=== PATIENT | male | born 1940 | race Caucasian/White ===

== ENCOUNTER 2021-03-08 10:15 | Emergency (ER) | payer MEDICARE, OTHER ==
[2021-03-08] MEDS ORDERED: Dextrose 50% Abboject 50 ML SYRINGE ONE (10:24)
[2021-03-08] MEDS ORDERED: Dextrose 5 % And 0.9 % NaCl 1,000 ML ONE ×2 (10:36→17:02)
[2021-03-08 11:19] LABS: Base Excess-Venous -2.1 mmol/L (-2.0 to 3.0); Bicarbonate (HCO3v) 25.6 mmol/L (22.0-28.0); CO2 Tension (PvCO2) 57.1 mmHg (42.0-51.0); Calcium, Ionized 1.15 mmol/L (1.15-1.33); Chloride 109 mmol/L (98-107); Hemoglobin - Calc 10.9 g/dL (14.0-18.0); Potassium 4.1 mmol/L (3.5-5.1); Sodium 145 mmol/L (138-145); T. Carbon Dioxide 27.4 mmol/L (22.0-28.0); vO2 Saturation-calc 61.1 % (60.0-85.0)
[2021-03-08 11:26] LABS: #Basophils 0.1 thou/uL (0.0-0.2); #Eosinphils 0.2 thou/uL (0.0-0.7); #Lymphocytes 2.8 thou/uL (1.20-3.40); #Monocytes 0.8 thou/uL (0.11-0.59); #Neutrophils 6.4 thou/uL (1.40-6.50); %Basophils 0.5 % (0.0-1.0); %Eosinophils 1.6 % (0.0-10.0); %Lymphocytes 27.6 % (21.0-51.0); %Monocytes 7.9 % (0.0-10.0); %Neutrophils 62.4 % (42.0-75.0); Hemoglobin 10.8 g/dL (14.0-18.0); MDiff Complete? YES; Mean Corpuscular HGB CONC 29.9 g/dL (32.0-36.0); Mean Platelet Volume 10.7 fL (7.4-10.4); Platelet Count 225 thou/uL (130-400); Polychromasia SLIGHT = 2-3 cells (100X) (0-2/hpf); RBC Distribution Width 15.2 % (11.5-14.5); Red Blood Cell (RBC) Count 4.15 mill/uL (4.70-6.10); White Blood Cell (WBC) Count 10.2 thou/uL (4.8-10.8)
[2021-03-08 11:28] LABS: ALT (SGPT) 19 U/L (8-55); AST (SGOT) 19 U/L (5-34); Albumin 3.8 g/dL (3.4-4.8); Alkaline Phosphatase 58 U/L (40-110); Anion Gap 14 mmol/L (10-20); BUN (Urea Nitrogen) 17 mg/dL (8.4-25.7); Bilirubin, Total 0.6 mg/dL (0.2-1.2); CK (CPK) 110 U/L (30-200); Calc. Creatinine Clearance 0 mL/min (70-130); Calcium 8.1 mg/dL (7.8-10.44); Carbon Dioxide 23 mmol/L (23-31); Chloride 111 mmol/L (98-107); Globulin 2.7 g/dL (2.4-3.5); Glucose 92 mg/dL (83-110); Lipase 16 U/L (8-78); Potassium 4.2 mmol/L (3.5-5.1); Protein, Total 6.5 g/dL (5.8-8.1); Sodium 144 mmol/L (136-145)
[2021-03-08 13:02] LABS: Bilirubin Negative (Negative); Blood, Urine Negative (Negative); Clarity Clear (Clear); Glucose, Urine (Dipstick) 100 mg/dL (Negative); Ketone, Urine Negative (Negative); Leukocyte Negative (Negative); Nitrite Negative (Negative); Protein, Urine (Dipstick) Negative (Neg-Trace); Urobilinogen 0.2 mg/dL (Less than 2); pH, Urine 5.5 (5.0-9.0)
[2021-03-08 14:05] LABS: SARS-CoV-2 NAA Rapid Test Not Detected (NotDetected)
== END 2021-03-08 16:08 | disposition short-term general hospital (02) ==
LOC: MADERS 10:15
DX: E11.649 Type 2 diabetes mellitus with hypoglycemia without coma (principal); G93.41 Metabolic encephalopathy; R22.0 Localized swelling, mass and lump, head; Z20.822 Contact with and (suspected) exposure to COVID-19; E11.40 Type 2 diabetes mellitus with diabetic neuropathy, unspecified; Z79.4 Long term (current) use of insulin; E03.9 Hypothyroidism, unspecified; E78.5 Hyperlipidemia, unspecified; E78.00 Pure hypercholesterolemia, unspecified; I10 Essential (primary) hypertension; E66.9 Obesity, unspecified; Z79.899 Other long term (current) drug therapy; Z79.82 Long term (current) use of aspirin
CPT/HCPCS: 0240U; 70450; 71045; 80053; 81003; 82330; 82435; 82550; 82803; 82962; 83605; 83690; 84132; 84295; 84484; 85014; 85025; 87040; 87086; 93005; 36416; 51701; 96374; 36415-59; J7042

== ENCOUNTER 2021-07-14 14:13 | Inpatient (IN) | payer OTHER, MEDICARE, BC ==
[2021-07-14 17:58] VITALS: BMI 34.2
[2021-07-14] MEDS ORDERED: Ondansetron ODT 4 MG TAB PO PRN (18:49)
[2021-07-14] MEDS ORDERED: Cephalexin 500 MG CAP PO SCH (19:00)
[2021-07-14] MEDS ORDERED: Dextrose 50% Abboject 50 ML SYRINGE SLOW IVP PRN (19:22)
[2021-07-14] MEDS ORDERED: Bacitracin 1 PK TOP PRN (19:27)
[2021-07-14] MEDS: Terazosin HCl 5 MG CAP PO SCH (21:55)
[2021-07-14] MEDS: Senokot S 8.6-50 MG TAB PO SCH (21:55)
[2021-07-14] MEDS: Tamsulosin HCl 0.4 MG CAP PO SCH (21:55)
[2021-07-14] MEDS: Bacitracin 1 PK TOP SCH (21:55)
[2021-07-14] MEDS: Famotidine 20 MG TAB PO SCH (21:55)
[2021-07-14] MEDS: Cephalexin 500 MG CAP PO SCH (21:55)
[2021-07-14] MEDS: Pregabalin 75 MG CAP PO SCH (21:55)
[2021-07-14] MEDS: Lisinopril 20 MG TAB PO SCH (21:56)
[2021-07-14] MEDS: levETIRAcetam 500 MG TAB PO SCH (21:57)
[2021-07-14] MEDS: Rosuvastatin 10 MG TAB PO SCH (21:57)
[2021-07-14] MEDS: Ascorbic Acid 500 mg Chewable Tablet PO SCH (21:57)
[2021-07-14] MEDS: HumaLOG 300 UNITS/3 ML VIAL SC SCH (21:58)
[2021-07-14] MEDS: Melatonin 3 MG TAB PO SCH (21:58)
[2021-07-15] MEDS ORDERED: Acetaminophen 325 MG TAB PO SCH (00:30)
[2021-07-15] MEDS: Acetaminophen 325 MG TAB PO SCH ×4 (06:04→23:53)
[2021-07-15] MEDS: Levothyroxine Sodium 75 MCG TAB PO SCH (06:04)
[2021-07-15] MEDS: Finasteride 5 MG TAB PO SCH (09:08)
[2021-07-15] MEDS: Pregabalin 75 MG CAP PO SCH ×2 (09:08→20:44)
[2021-07-15] MEDS: metFORMIN 500 MG TAB PO SCH ×2 (09:08→17:10)
[2021-07-15] MEDS: Lisinopril 20 MG TAB PO SCH ×2 (09:09→20:46)
[2021-07-15] MEDS: Ferrous Sulfate 325 MG TAB PO SCH (09:10)
[2021-07-15] MEDS: Senokot S 8.6-50 MG TAB PO SCH ×2 (09:10→20:44)
[2021-07-15] MEDS: levETIRAcetam 500 MG TAB PO SCH ×2 (09:10→20:46)
[2021-07-15] MEDS: Carvedilol 12.5 MG TAB PO SCH ×2 (09:10→17:11)
[2021-07-15] MEDS: Ascorbic Acid 500 mg Chewable Tablet PO SCH ×2 (09:10→20:44)
[2021-07-15] MEDS: Cyanocobalamin (Vitamin B-12) 1,000 MCG TAB PO SCH (09:10)
[2021-07-15] MEDS: Amlodipine 5 MG TAB PO SCH (09:10)
[2021-07-15] MEDS: Famotidine 20 MG TAB PO SCH ×2 (09:10→20:44)
[2021-07-15] MEDS: Bacitracin 1 PK TOP SCH ×2 (09:11→20:52)
[2021-07-15] MEDS: Cephalexin 500 MG CAP PO SCH ×4 (09:11→20:46)
[2021-07-15] MEDS: HumaLOG 300 UNITS/3 ML VIAL SC SCH ×3 (09:11→20:49)
[2021-07-15] MEDS: Polyethylene Glycol 3350 17 GM Packet PO SCH (09:13)
[2021-07-15] MEDS: Rosuvastatin 10 MG TAB PO SCH (20:45)
[2021-07-15] MEDS: Melatonin 3 MG TAB PO SCH (20:46)
[2021-07-15] MEDS: Terazosin HCl 5 MG CAP PO SCH (20:46)
[2021-07-15] MEDS: Tamsulosin HCl 0.4 MG CAP PO SCH (20:47)
[2021-07-16] MEDS: Levothyroxine Sodium 75 MCG TAB PO SCH (05:50)
[2021-07-16] MEDS: Acetaminophen 325 MG TAB PO SCH ×4 (05:50→23:43)
[2021-07-16] MEDS: Ascorbic Acid 500 mg Chewable Tablet PO SCH ×2 (09:07→20:48)
[2021-07-16] MEDS: Carvedilol 12.5 MG TAB PO SCH ×2 (09:07→17:28)
[2021-07-16] MEDS: Amlodipine 5 MG TAB PO SCH (09:08)
[2021-07-16] MEDS: metFORMIN 500 MG TAB PO SCH ×2 (09:08→17:28)
[2021-07-16] MEDS: Famotidine 20 MG TAB PO SCH ×2 (09:09→20:49)
[2021-07-16] MEDS: Cyanocobalamin (Vitamin B-12) 1,000 MCG TAB PO SCH (09:09)
[2021-07-16] MEDS: Cephalexin 500 MG CAP PO SCH ×4 (09:09→20:49)
[2021-07-16] MEDS: HumaLOG 300 UNITS/3 ML VIAL SC SCH ×3 (09:10→20:51)
[2021-07-16] MEDS: levETIRAcetam 500 MG TAB PO SCH ×2 (09:10→20:57)
[2021-07-16] MEDS: Ferrous Sulfate 325 MG TAB PO SCH (09:10)
[2021-07-16] MEDS: Finasteride 5 MG TAB PO SCH (09:10)
[2021-07-16] MEDS: Pregabalin 75 MG CAP PO SCH ×2 (09:11→20:53)
[2021-07-16] MEDS: Lisinopril 20 MG TAB PO SCH ×2 (09:11→20:55)
[2021-07-16] MEDS: Polyethylene Glycol 3350 17 GM Packet PO SCH (09:11)
[2021-07-16] MEDS: Bacitracin 1 PK TOP SCH ×2 (09:11→20:49)
[2021-07-16] MEDS: Senokot S 8.6-50 MG TAB PO SCH ×2 (09:12→20:52)
[2021-07-16] MEDS: Rosuvastatin 10 MG TAB PO SCH (20:53)
[2021-07-16] MEDS: Tamsulosin HCl 0.4 MG CAP PO SCH (20:54)
[2021-07-16] MEDS: Melatonin 3 MG TAB PO SCH (20:54)
[2021-07-16] MEDS: Terazosin HCl 5 MG CAP PO SCH (20:54)
[2021-07-17] MEDS: Acetaminophen 325 MG TAB PO SCH ×3 (05:40→17:20)
[2021-07-17] MEDS: Levothyroxine Sodium 75 MCG TAB PO SCH (05:41)
[2021-07-17] MEDS: Senokot S 8.6-50 MG TAB PO SCH ×2 (09:26→20:38)
[2021-07-17] MEDS: levETIRAcetam 500 MG TAB PO SCH ×2 (09:26→20:41)
[2021-07-17] MEDS: metFORMIN 500 MG TAB PO SCH ×2 (09:26→17:19)
[2021-07-17] MEDS: Pregabalin 75 MG CAP PO SCH ×2 (09:27→20:37)
[2021-07-17] MEDS: Carvedilol 12.5 MG TAB PO SCH ×2 (09:27→17:19)
[2021-07-17] MEDS: Cyanocobalamin (Vitamin B-12) 1,000 MCG TAB PO SCH (09:28)
[2021-07-17] MEDS: Ferrous Sulfate 325 MG TAB PO SCH (09:28)
[2021-07-17] MEDS: Cephalexin 500 MG CAP PO SCH ×4 (09:28→20:36)
[2021-07-17] MEDS: Finasteride 5 MG TAB PO SCH (09:28)
[2021-07-17] MEDS: Amlodipine 5 MG TAB PO SCH (09:28)
[2021-07-17] MEDS: Famotidine 20 MG TAB PO SCH ×2 (09:28→20:42)
[2021-07-17] MEDS: Ascorbic Acid 500 mg Chewable Tablet PO SCH ×2 (09:28→20:36)
[2021-07-17] MEDS: HumaLOG 300 UNITS/3 ML VIAL SC SCH ×3 (09:29→20:45)
[2021-07-17] MEDS: Polyethylene Glycol 3350 17 GM Packet PO SCH (09:30)
[2021-07-17] MEDS: Lisinopril 20 MG TAB PO SCH ×2 (09:33→20:37)
[2021-07-17] MEDS: Bacitracin 1 PK TOP SCH ×2 (09:35→20:36)
[2021-07-17] MEDS: Terazosin HCl 5 MG CAP PO SCH (20:38)
[2021-07-17] MEDS: Rosuvastatin 10 MG TAB PO SCH (20:39)
[2021-07-17] MEDS: Tamsulosin HCl 0.4 MG CAP PO SCH (20:41)
[2021-07-17] MEDS: Melatonin 3 MG TAB PO SCH (20:42)
[2021-07-18] MEDS: Acetaminophen 325 MG TAB PO SCH ×4 (00:11→17:15)
[2021-07-18] MEDS: Levothyroxine Sodium 75 MCG TAB PO SCH (05:19)
[2021-07-18] MEDS: Finasteride 5 MG TAB PO SCH (09:19)
[2021-07-18] MEDS: Carvedilol 12.5 MG TAB PO SCH ×2 (09:19→17:15)
[2021-07-18] MEDS: levETIRAcetam 500 MG TAB PO SCH ×2 (09:19→20:45)
[2021-07-18] MEDS: Famotidine 20 MG TAB PO SCH ×2 (09:19→20:52)
[2021-07-18] MEDS: metFORMIN 500 MG TAB PO SCH ×2 (09:19→17:14)
[2021-07-18] MEDS: Amlodipine 5 MG TAB PO SCH (09:19)
[2021-07-18] MEDS: Ascorbic Acid 500 mg Chewable Tablet PO SCH ×2 (09:19→20:53)
[2021-07-18] MEDS: Lisinopril 20 MG TAB PO SCH ×2 (09:20→20:52)
[2021-07-18] MEDS: Pregabalin 75 MG CAP PO SCH ×2 (09:20→20:50)
[2021-07-18] MEDS: Cyanocobalamin (Vitamin B-12) 1,000 MCG TAB PO SCH (09:20)
[2021-07-18] MEDS: Cephalexin 500 MG CAP PO SCH ×4 (09:20→20:45)
[2021-07-18] MEDS: Polyethylene Glycol 3350 17 GM Packet PO SCH (09:21)
[2021-07-18] MEDS: Ferrous Sulfate 325 MG TAB PO SCH (09:21)
[2021-07-18] MEDS: HumaLOG 300 UNITS/3 ML VIAL SC SCH ×3 (09:22→21:07)
[2021-07-18] MEDS: Bacitracin 1 PK TOP SCH ×2 (09:22→20:50)
[2021-07-18] MEDS: Senokot S 8.6-50 MG TAB PO SCH ×2 (09:28→20:50)
[2021-07-18 15:26] LABS: SARS-CoV-2 PCR by NAA Not Detected (NotDetected)
[2021-07-18] MEDS: Terazosin HCl 5 MG CAP PO SCH (20:45)
[2021-07-18] MEDS: Rosuvastatin 10 MG TAB PO SCH (20:45)
[2021-07-18] MEDS: Tamsulosin HCl 0.4 MG CAP PO SCH (20:45)
[2021-07-18] MEDS: Melatonin 3 MG TAB PO SCH (20:53)
[2021-07-19] MEDS: Acetaminophen 325 MG TAB PO SCH ×5 (01:27→23:51)
[2021-07-19] MEDS: Levothyroxine Sodium 75 MCG TAB PO SCH (06:23)
[2021-07-19] MEDS: Senokot S 8.6-50 MG TAB PO SCH ×2 (07:48→21:11)
[2021-07-19] MEDS: Ferrous Sulfate 325 MG TAB PO SCH (07:48)
[2021-07-19] MEDS: levETIRAcetam 500 MG TAB PO SCH ×2 (07:49→21:02)
[2021-07-19] MEDS: Bacitracin 1 PK TOP SCH ×2 (07:49→21:02)
[2021-07-19] MEDS: Famotidine 20 MG TAB PO SCH ×2 (07:49→21:02)
[2021-07-19] MEDS: Polyethylene Glycol 3350 17 GM Packet PO SCH (07:49)
[2021-07-19] MEDS: Ascorbic Acid 500 mg Chewable Tablet PO SCH ×2 (07:49→21:02)
[2021-07-19] MEDS: metFORMIN 500 MG TAB PO SCH ×2 (07:49→17:18)
[2021-07-19] MEDS: Finasteride 5 MG TAB PO SCH (07:50)
[2021-07-19] MEDS: Cyanocobalamin (Vitamin B-12) 1,000 MCG TAB PO SCH (07:50)
[2021-07-19] MEDS: Amlodipine 5 MG TAB PO SCH (07:50)
[2021-07-19] MEDS: Pregabalin 75 MG CAP PO SCH ×2 (07:50→21:05)
[2021-07-19] MEDS: Carvedilol 12.5 MG TAB PO SCH ×2 (07:50→17:18)
[2021-07-19] MEDS: Cephalexin 500 MG CAP PO SCH ×4 (07:50→21:04)
[2021-07-19] MEDS: Lisinopril 20 MG TAB PO SCH ×2 (07:50→21:03)
[2021-07-19] MEDS: HumaLOG 300 UNITS/3 ML VIAL SC SCH ×3 (07:51→21:16)
[2021-07-19] MEDS: Tamsulosin HCl 0.4 MG CAP PO SCH (21:02)
[2021-07-19] MEDS: Terazosin HCl 5 MG CAP PO SCH (21:02)
[2021-07-19] MEDS: Rosuvastatin 10 MG TAB PO SCH (21:02)
[2021-07-19] MEDS: Melatonin 3 MG TAB PO SCH (21:03)
[2021-07-20] MEDS: Levothyroxine Sodium 75 MCG TAB PO SCH (05:56)
[2021-07-20] MEDS: Acetaminophen 325 MG TAB PO SCH ×4 (05:56→23:28)
[2021-07-20] MEDS: levETIRAcetam 500 MG TAB PO SCH ×2 (08:27→20:53)
[2021-07-20] MEDS: Polyethylene Glycol 3350 17 GM Packet PO SCH (08:27)
[2021-07-20] MEDS: Senokot S 8.6-50 MG TAB PO SCH ×2 (08:27→20:53)
[2021-07-20] MEDS: Lisinopril 20 MG TAB PO SCH ×2 (08:27→20:54)
[2021-07-20] MEDS: metFORMIN 500 MG TAB PO SCH ×2 (08:28→17:16)
[2021-07-20] MEDS: Cyanocobalamin (Vitamin B-12) 1,000 MCG TAB PO SCH (08:28)
[2021-07-20] MEDS: Amlodipine 5 MG TAB PO SCH (08:28)
[2021-07-20] MEDS: Pregabalin 75 MG CAP PO SCH ×2 (08:29→20:56)
[2021-07-20] MEDS: Carvedilol 12.5 MG TAB PO SCH ×2 (08:29→17:21)
[2021-07-20] MEDS: Ascorbic Acid 500 mg Chewable Tablet PO SCH ×2 (08:29→20:53)
[2021-07-20] MEDS: Ferrous Sulfate 325 MG TAB PO SCH (08:29)
[2021-07-20] MEDS: Finasteride 5 MG TAB PO SCH (08:30)
[2021-07-20] MEDS: Bacitracin 1 PK TOP SCH ×2 (08:30→20:53)
[2021-07-20] MEDS: Famotidine 20 MG TAB PO SCH ×2 (08:30→20:54)
[2021-07-20] MEDS: HumaLOG 300 UNITS/3 ML VIAL SC SCH ×3 (08:31→20:58)
[2021-07-20] MEDS: Cephalexin 500 MG CAP PO SCH ×4 (08:31→20:55)
[2021-07-20] MEDS: Rosuvastatin 10 MG TAB PO SCH (20:53)
[2021-07-20] MEDS: Terazosin HCl 5 MG CAP PO SCH (20:53)
[2021-07-20] MEDS: Melatonin 3 MG TAB PO SCH (20:53)
[2021-07-20] MEDS: Tamsulosin HCl 0.4 MG CAP PO SCH (20:54)
[2021-07-21] MEDS: Acetaminophen 325 MG TAB PO SCH ×3 (06:04→17:32)
[2021-07-21] MEDS: Levothyroxine Sodium 75 MCG TAB PO SCH (06:04)
[2021-07-21] MEDS: HumaLOG 300 UNITS/3 ML VIAL SC SCH ×3 (09:50→16:57)
[2021-07-21] MEDS: metFORMIN 500 MG TAB PO SCH ×2 (09:52→16:56)
[2021-07-21] MEDS: Finasteride 5 MG TAB PO SCH (09:52)
[2021-07-21] MEDS: Amlodipine 5 MG TAB PO SCH (09:53)
[2021-07-21] MEDS: Senokot S 8.6-50 MG TAB PO SCH ×2 (09:53→20:14)
[2021-07-21] MEDS: Ferrous Sulfate 325 MG TAB PO SCH (09:53)
[2021-07-21] MEDS: levETIRAcetam 500 MG TAB PO SCH ×2 (09:53→20:14)
[2021-07-21] MEDS: Bacitracin 1 PK TOP SCH ×2 (09:53→20:14)
[2021-07-21] MEDS: Carvedilol 12.5 MG TAB PO SCH ×2 (09:53→17:32)
[2021-07-21] MEDS: Pregabalin 75 MG CAP PO SCH ×2 (09:54→20:18)
[2021-07-21] MEDS: Cyanocobalamin (Vitamin B-12) 1,000 MCG TAB PO SCH (09:55)
[2021-07-21] MEDS: Famotidine 20 MG TAB PO SCH ×2 (09:55→20:14)
[2021-07-21] MEDS: Ascorbic Acid 500 mg Chewable Tablet PO SCH ×2 (09:55→20:14)
[2021-07-21] MEDS: Lisinopril 20 MG TAB PO SCH ×2 (09:55→20:18)
[2021-07-21] MEDS: Polyethylene Glycol 3350 17 GM Packet PO SCH (09:56)
[2021-07-21] MEDS: Melatonin 3 MG TAB PO SCH (20:14)
[2021-07-21] MEDS: Rosuvastatin 10 MG TAB PO SCH (20:14)
[2021-07-21] MEDS: Terazosin HCl 5 MG CAP PO SCH (20:19)
[2021-07-21] MEDS: Tamsulosin HCl 0.4 MG CAP PO SCH (20:19)
[2021-07-22] MEDS: Acetaminophen 325 MG TAB PO SCH ×4 (00:13→17:05)
[2021-07-22] MEDS: Levothyroxine Sodium 75 MCG TAB PO SCH (06:01)
[2021-07-22] MEDS: Pregabalin 75 MG CAP PO SCH ×2 (08:34→20:34)
[2021-07-22] MEDS: HumaLOG 300 UNITS/3 ML VIAL SC SCH ×3 (08:35→17:05)
[2021-07-22] MEDS: Polyethylene Glycol 3350 17 GM Packet PO SCH (08:36)
[2021-07-22] MEDS: Senokot S 8.6-50 MG TAB PO SCH ×2 (08:36→20:35)
[2021-07-22] MEDS: Amlodipine 5 MG TAB PO SCH (08:37)
[2021-07-22] MEDS: levETIRAcetam 500 MG TAB PO SCH ×2 (08:37→20:35)
[2021-07-22] MEDS: metFORMIN 500 MG TAB PO SCH ×2 (08:37→17:05)
[2021-07-22] MEDS: Cyanocobalamin (Vitamin B-12) 1,000 MCG TAB PO SCH (08:37)
[2021-07-22] MEDS: Ferrous Sulfate 325 MG TAB PO SCH (08:37)
[2021-07-22] MEDS: Bacitracin 1 PK TOP SCH ×2 (08:37→20:35)
[2021-07-22] MEDS: Finasteride 5 MG TAB PO SCH (08:37)
[2021-07-22] MEDS: Carvedilol 12.5 MG TAB PO SCH ×2 (08:37→17:05)
[2021-07-22] MEDS: Lisinopril 20 MG TAB PO SCH ×2 (08:38→20:36)
[2021-07-22] MEDS: Famotidine 20 MG TAB PO SCH ×2 (08:38→20:35)
[2021-07-22] MEDS: Ascorbic Acid 500 mg Chewable Tablet PO SCH ×2 (08:38→20:35)
[2021-07-22] MEDS: Terazosin HCl 5 MG CAP PO SCH (20:35)
[2021-07-22] MEDS: Rosuvastatin 10 MG TAB PO SCH (20:35)
[2021-07-22] MEDS: Tamsulosin HCl 0.4 MG CAP PO SCH (20:35)
[2021-07-22] MEDS: Melatonin 3 MG TAB PO SCH (20:39)
[2021-07-22] MEDS: Mag-Al Plus 1200 MG/1200 MG/120 MG/30 ML UDCUP PO PRN (21:10)
[2021-07-23] MEDS: Acetaminophen 325 MG TAB PO SCH ×5 (00:46→23:45)
[2021-07-23] MEDS: Levothyroxine Sodium 75 MCG TAB PO SCH (05:25)
[2021-07-23] MEDS: Pregabalin 75 MG CAP PO SCH ×2 (08:49→21:14)
[2021-07-23] MEDS: levETIRAcetam 500 MG TAB PO SCH ×2 (08:50→21:13)
[2021-07-23] MEDS: Bacitracin 1 PK TOP SCH ×2 (08:50→21:18)
[2021-07-23] MEDS: Ferrous Sulfate 325 MG TAB PO SCH (08:51)
[2021-07-23] MEDS: Lisinopril 20 MG TAB PO SCH ×2 (08:51→21:15)
[2021-07-23] MEDS: metFORMIN 500 MG TAB PO SCH ×2 (08:51→17:08)
[2021-07-23] MEDS: Cyanocobalamin (Vitamin B-12) 1,000 MCG TAB PO SCH (08:51)
[2021-07-23] MEDS: Amlodipine 5 MG TAB PO SCH (08:51)
[2021-07-23] MEDS: Famotidine 20 MG TAB PO SCH ×2 (08:52→21:18)
[2021-07-23] MEDS: Ascorbic Acid 500 mg Chewable Tablet PO SCH ×2 (08:52→21:15)
[2021-07-23] MEDS: Polyethylene Glycol 3350 17 GM Packet PO SCH (08:52)
[2021-07-23] MEDS: Senokot S 8.6-50 MG TAB PO SCH ×2 (08:52→21:15)
[2021-07-23] MEDS: HumaLOG 300 UNITS/3 ML VIAL SC SCH ×3 (08:52→17:08)
[2021-07-23] MEDS: Finasteride 5 MG TAB PO SCH (08:57)
[2021-07-23] MEDS: Carvedilol 12.5 MG TAB PO SCH ×2 (08:57→17:10)
[2021-07-23] MEDS: Mag-Al Plus 1200 MG/1200 MG/120 MG/30 ML UDCUP PO PRN (19:43)
[2021-07-23] MEDS: Melatonin 3 MG TAB PO SCH (21:14)
[2021-07-23] MEDS: Tamsulosin HCl 0.4 MG CAP PO SCH (21:15)
[2021-07-23] MEDS: Rosuvastatin 10 MG TAB PO SCH (21:16)
[2021-07-23] MEDS: Terazosin HCl 5 MG CAP PO SCH (21:16)
[2021-07-24] MEDS: Levothyroxine Sodium 75 MCG TAB PO SCH (05:55)
[2021-07-24] MEDS: Acetaminophen 325 MG TAB PO SCH ×2 (05:55→11:09)
[2021-07-24 07:45] VITALS: TEMP 97.6
[2021-07-24] MEDS: HumaLOG 300 UNITS/3 ML VIAL SC SCH ×3 (07:46→17:10)
[2021-07-24] MEDS: metFORMIN 500 MG TAB PO SCH ×2 (07:47→17:10)
[2021-07-24] MEDS: Carvedilol 12.5 MG TAB PO SCH (07:47)
[2021-07-24] MEDS: levETIRAcetam 500 MG TAB PO SCH (09:05)
[2021-07-24] MEDS: Senokot S 8.6-50 MG TAB PO SCH (09:05)
[2021-07-24] MEDS: Bacitracin 1 PK TOP SCH (09:05)
[2021-07-24] MEDS: Ferrous Sulfate 325 MG TAB PO SCH (09:06)
[2021-07-24] MEDS: Cyanocobalamin (Vitamin B-12) 1,000 MCG TAB PO SCH (09:06)
[2021-07-24] MEDS: Amlodipine 5 MG TAB PO SCH (09:07)
[2021-07-24] MEDS: Famotidine 20 MG TAB PO SCH (09:07)
[2021-07-24] MEDS: Lisinopril 20 MG TAB PO SCH (09:07)
[2021-07-24] MEDS: Ascorbic Acid 500 mg Chewable Tablet PO SCH (09:08)
[2021-07-24] MEDS: Polyethylene Glycol 3350 17 GM Packet PO SCH (09:11)
[2021-07-24] MEDS: Finasteride 5 MG TAB PO SCH (09:11)
[2021-07-24] MEDS: Pregabalin 75 MG CAP PO SCH (09:11)
[2021-07-24 09:12] VITALS: BP 130/70
== END 2021-07-24 17:17 | disposition home health service (06) | DRG 948 ==
LOC: MADMS 14:13
PROVIDERS: ADMIT Family Medicine; ATTEND Family Medicine
DX: R53.81 Other malaise (principal); E11.9 Type 2 diabetes mellitus without complications; I10 Essential (primary) hypertension; I25.10 Atherosclerotic heart disease of native coronary artery without angina pectoris; G40.909 Epilepsy, unspecified, not intractable, without status epilepticus; E03.9 Hypothyroidism, unspecified; N40.0 Benign prostatic hyperplasia without lower urinary tract symptoms; S02.69XD Fracture of mandible of other specified site, subsequent encounter for fracture with routine healing; V89.0XXD Person injured in unspecified motor-vehicle accident, nontraffic, subsequent encounter; Z79.51 Long term (current) use of inhaled steroids; Z95.5 Presence of coronary angioplasty implant and graft; Z79.899 Other long term (current) drug therapy; Z79.4 Long term (current) use of insulin
CPT/HCPCS: 36416; J1815; Q0162; U0003; U0005

== ENCOUNTER 2025-06-26 16:25 | Emergency (ER) | payer MEDICARE, BC ==
[2025-06-26 17:12] LABS: #Basophils 0.1 thou/uL (0.0-0.2); #Eosinophils 0.1 thou/uL (0.0-0.7); #Lymphocytes 2.9 thou/uL (1.20-3.40); #Monocytes 0.6 thou/uL (0.11-0.59); #Neutrophils 3.8 thou/uL (1.40-6.50); %Basophils 1.0 % (0.0-1.0); %Eosinophils 2.0 % (0.0-10.0); %Lymphocytes 39.0 % (21.0-51.0); %Monocytes 7.3 % (0.0-10.0); %Neutrophils 50.7 % (42.0-75.0); Hematocrit 36.7 % (42.0-52.0); Hemoglobin 11.7 g/dL (14.0-18.0); Mean Corpuscular Hemoglobin 27.5 pg (27.0-31.0); Mean Corpuscular Volume 86.5 fl (78.0-98.0); Platelet Count 207 10x3/uL (130-400); Red Blood Cell (RBC) Count 4.24 mill/uL (4.70-6.10); White Blood Cell (WBC) Count 7.4 10x3/uL (4.8-10.8)
[2025-06-26 17:23] LABS: Anion Gap 19 mmol/L (10-20); BUN (Urea Nitrogen) 13 mg/dL (8.4-25.7); Calc. Creatinine Clearance 0 mL/min (70-130); Calcium 8.3 mg/dL (7.8-10.44); Carbon Dioxide 21 mmol/L (23-31); Chloride 109 mmol/L (98-107); Glucose 81 mg/dL (83-110); Potassium 4.0 mmol/L (3.5-5.1); Sodium 145 mmol/L (136-145)
[2025-06-26] MEDS ORDERED: Acetaminophen 325 MG TAB ONE (17:36)
[2025-06-26 17:40] LABS: Glucose, Urine (Dipstick) Negative (Negative); Leukocyte Negative (Negative); Protein, Urine (Dipstick) Negative (Neg-Trace); Specific Gravity, Urine 1.020 (1.005-1.030)
[2025-06-26 17:48] LABS: Bacteria/HPF Rare-Few HPF (None Seen); CAUTI Indications for Culture Pelvic or flank pain; RBC/HPF None Seen HPF (0-3); Urine Culture Reflex No No; WBC/HPF 0-3 HPF (0-3)
== END 2025-06-26 18:40 | disposition home or self-care (01) ==
LOC: MADERS 16:25
DX: M47.896 Other spondylosis, lumbar region (principal); E11.40 Type 2 diabetes mellitus with diabetic neuropathy, unspecified; I10 Essential (primary) hypertension; E03.9 Hypothyroidism, unspecified; Z79.899 Other long term (current) drug therapy; Z79.84 Long term (current) use of oral hypoglycemic drugs; Z79.82 Long term (current) use of aspirin; Z79.4 Long term (current) use of insulin
CPT/HCPCS: 36415; 72100; 80048; 81001; 85025; 99283